=== PATIENT | female | born 1950 | race American Indian/Alaskan Native ===

== ENCOUNTER 2017-10-11 13:36 | Outpatient (CLI) | payer OTHER ==
--- NOTE | 2017-10-11 14:46 | XRay Report ---
XRAY LEFT SHOULDER THREE VIEWS: 10/11/17 13:36:00 CLINICAL: Left shoulder pain. FINDINGS: No fracture or dislocation. Moderate glenohumeral joint arthritis with irregularity of the glenoid and an inferior humeral osteophyte. Normal AC joint. The soft tissues are normal. IMPRESSION: Moderate glenohumeral joint arthritis.
== END 2017-10-11 13:37 | disposition home or self-care (01) ==
LOC: SPVIMAG 13:36
PROVIDERS: ATTEND Orthopaedic Surgery
DX: M25.512 Pain in left shoulder (principal)